=== PATIENT | male | born 1960 | race Caucasian/White ===

== ENCOUNTER 2019-08-07 05:05 | Emergency (ER) | payer BC ==
[~2019-08-07] VITALS: Ht 190.5 cm; Wt 111.1 kg
[2019-08-07] MEDS ORDERED: PREDNISONE20 M1 PO (09:16)
== END 2019-08-07 09:30 | disposition home or self-care (01) ==
LOC: ED 05:05
DX: T78.40XA Allergy, unspecified, initial encounter (principal); I10 Essential (primary) hypertension; J44.9 Chronic obstructive pulmonary disease, unspecified; X58.XXXA Exposure to other specified factors, initial encounter